=== PATIENT | female | born 1980 | race Caucasian/White ===

== ENCOUNTER 2017-11-23 22:27 | Emergency (ER) | payer OTHER ==
[~2017-11-23 22:27] MED LIST: COZA25TA PO; CYCL10TA PO; HUMA100I2 SQ; LISI-515 PO; NAPR500 PO; SPRI28TA PO; VENTAER INH; ZITHTAB PO
[2017-11-23 22:28] VITALS: BP 110/71; PULSE 114; RESP 18; TEMP 98.6; O2SAT 96
[2017-11-23] MEDS ORDERED: ACETAMINOPHEN/HYDROcodone 325 MG/5 MG TAB PO ONE (22:45)
--- NOTE | 2017-11-23 23:02 | PD ---
HPI Chief Complaint: fall Time Seen by Provider: 22:36 Travel History International Travel<30 days: No Contact w/Intl Traveler<30days: No Traveled to known affect area: No History of Present Illness HPI 37-year-old [id number] white female [employer] employee presents to emergency department for evaluation of a fall. She states that she tripped and fell in her garage onto her hands and knees. She states that this had knocked the wind out of her. Since then she's had severe pain in her elbows, right wrist and to a lesser degree her left wrist. She denies any numbness, tingling or weakness. No injury to her head, neck or back. No injury to her knees. Pain is moderate. Worse with movement. Some relief from remaining still. PFSH Past Medical History Anemia: Yes Asthma: No Anxiety: Yes Diabetes: Yes (TYPE 1) Diminished Hearing: No Glaucoma: No Genitourinary: No Hepatitis: No Hiatal Hernia: No Hypertension: Yes Neurologic: Yes (TIA'S) Respiratory: No Migraines: Yes (COMPLICATED MIGRAINES) Thyroid Disease: No Menopausal: No : 2 Para: 2 Past Surgical History Gynecologic Surgery: Yes (LABIAL FUSION) Insulin Pump: Yes Other Surgery: Yes Social History Alcohol Use: Yes (OCC) Tobacco Use: No Substance Use: No Allergies-Medications (Allergen,Severity, Reaction): Coded Allergies: amoxicillin (Unverified Allergy, Severe, Diarrhea, 07/09/17) clavulanic acid (Unverified Allergy, Severe, Diarrhea, 07/09/17) morphine (Unverified Allergy, Intermediate, Rash, 07/09/17) PT DENIES ALLERGY cefazolin (Unverified Allergy, Mild, Itching, 07/09/17) RECEIVED SEVERAL MEDS - AMONG THEM WAS ANCEF latex (Unverified Allergy, Mild, ITCHY, 07/09/17) vancomycin (Unverified Allergy, Mild, Itching, 07/09/17) REDNESS AND ITCHING AFTER RECEIVING SEVERAL MEDS AMONG WHICH WAS VANCOMYCIN Uncoded Allergies: SHANIA (Allergy, Severe, 06/13/11) Reported Meds & Prescriptions Reported Meds & Active Scripts Active Victoria (Hydrocodone-Acetaminophen) 5 Mg-325 Mg Tab 1 Tab PO Q4H PRN Zithromax Z-Jorge L (Azithromycin) 250 Mg Dspk 250 Mg PO DIRECTED 500 MG (2 tabs) day 1, then 1 tab days 2-5. Ventolin Hfa 18 GM Inh (Albuterol Sulfate) 90 Mcg/Act Aer 2 Puff INH Q4H PRN Flexeril (Cyclobenzaprine HCl) 10 Mg Tab 10 Mg PO Q8HR PRN Naprosyn (Naproxen) 500 Mg Tab 500 Mg PO Q12HR PRN Reported Sprintec 28 (Norgestimate-Ethinyl Estradiol) 0.25-35 mg-Mcg Tab 1 Tab PO DAILY Humalog Cartridge Inj (Insulin Lispro (Human) Inj) 300 Unit/3 Ml Soln 2-10 Units SQ TIDAC PRN Cozaar (Losartan Potassium) 25 Mg Tab 12.5 Mg PO DAILY Lisinopril 20 Mg Tab 20 Mg PO DAILY Review of Systems General / Constitutional: No: Fever Eyes: No: Visual changes HENT: No: Headaches Cardiovascular: No: Chest Pain or Discomfort Respiratory: No: Shortness of Breath Gastrointestinal: No: Abdominal Pain Genitourinary: No: Dysuria Musculoskeletal: Positive: Arthralgias, Limited ROM, Edema, Pain Skin: No Rash Neurologic: No: Weakness Psychiatric: No: Depression Endocrine: No: Polydipsia Hematologic/Lymphatic: No: Easy Bruising Physical Exam Narrative GENERAL: Well-developed, well-nourished in no apparent distress. Nontoxic appearing. HEAD: Normocephalic, atraumatic. EYES: Pupils equal round and reactive. Extraocular motions intact. No scleral icterus. No injection or drainage. ENT: Nose clear. Throat without erythema, tonsillar hypertrophy or exudate. Uvula midline. Airway patent. NECK: Trachea midline. Supple, nontender, moves head freely. No central bony tenderness or spasm. CARDIOVASCULAR: Regular rate and rhythm without murmurs, gallops, or rubs. RESPIRATORY: Clear to auscultation. Breath sounds equal bilaterally. No wheezes , rales, or rhonchi. GASTROINTESTINAL: Abdomen soft, non-tender, nondistended. No hepato-splenomegaly , or palpable masses. No guarding. EXTREMITIES: Examination of the right upper extremity reveals diffuse tenderness in the right elbow with mild swelling. Patient also has tenderness, swelling over the volar thenar eminence with ecchymosis into the palm. There is no pain in the fingers. She has pain in the wrist diffusely but no point tenderness. No pain in the anatomical snuffbox. She has intact gross sensation with good distal pulses. No pain in the shoulder. The left upper extremity reveals diffuse tenderness in the elbow as well. Minimal swelling. Patient also has pain in the volar pad of the left hand. There is no ecchymosis. She also has some mild tenderness into the wrist. No snuffbox tenderness. She has intact median/ulnar/radial nerves. The skin is intact. The lower extremities are unremarkable for trauma. BACK: Nontender without deformity. No flank tenderness. NEUROLOGICAL: Awake, alert and oriented x 3 .Cranial nerves grossly intact. Motor and sensory grossly within normal limits. Normal speech. Data Data Last Documented VS Vital Signs Date Time Temp Pulse Resp B/P (MAP) Pulse Ox O2 Delivery O2 Flow Rate FiO2 11/23/17 22:28 98.6 114 18 110/71 (84) 96 Room Air Orders Orders Acetamin-Hydrocod 325-5 Mg (Victoria 5-325 (11/23/17 22:45) Elbow, Complete (4 Vws) (11/23/17 22:42) Hand, Complete (Ppb1dkf) (11/23/17 22:42) Elbow, Complete (4 Vws) (11/23/17 22:42) Hand, Complete (Hdt1koz) (11/23/17 22:42) Ice/Cold Pack (11/23/17 22:42) Splint Or Brace Apply/Monitor (11/24/17 00:06) Ed Discharge Order (11/24/17 00:06) MDM Medical Decision Making Medical Screen Exam Complete: Yes Emergency Medical Condition: Yes Medical Record Reviewed: Yes Interpretation(s) Last 24 hours Impressions Hand X-Ray 11/23/172241 Signed Impressions: Service Date/Time: Thursday, November 23, 2017 22:51 - CONCLUSION: Intact right hand. Haroon Arana MD Hand X-Ray 11/23/172241 Signed Impressions: Service Date/Time: Thursday, November 23, 2017 22:51 - CONCLUSION: Intact left hand. Haroon Arana MD Elbow X-Ray 11/23/172241 Signed Impressions: Service Date/Time: Thursday, November 23, 2017 22:56 - CONCLUSION: 3 mm depressed radial head fracture. Haroon Arana MD Elbow X-Ray 11/23/17 2242 Signed Impressions: Service Date/Time: Thursday, November 23, 2017 22:52 - CONCLUSION: Normal left elbow x-rays. Haroon Arana MD Differential Diagnosis MDM: High Differential diagnoses: Fracture, sprain, strain, dislocation, contusion, neurovascular injury Narrative Course Patient is given Lortab 5 milligrams by mouth and ice packs. Diagnosis Primary Impression: Fracture of radial head, right, closed Qualified Codes: S52.121A - Displaced fracture of head of right radius, initial encounter for closed fracture Additional Impressions: right hand contusion left elbow contusion left hand contusion Departure Forms: Work Release Special Instructions: No work 3-5 days. Additional Instructions: Rest. Sling. Ice packs for the next few days. Medications as directed. Follow-up with Dr. Heath next few days for recheck. Return to the ER if any problems. Med/Other Pt SpecificInfo: Prescription(s) given Scripts Hydrocodone-Acetaminophen (Victoria) 5 Mg-325 Mg Tab 1 TAB PO Q4H Y for PAIN, #30 TAB 0 Refills Prov: Kiley Kelley 11/24/17 Disposition: 01 DISCHARGE HOME Condition: Stable Froylan Rosario Nov 23, 2017 23:02
--- NOTE | 2017-11-23 23:19 | RADRPT ---
EXAM DATE/TIME: 11/23/2017 22:51 [facility] COMPARISON: No previous studies available for comparison. INDICATIONS : Left hand pain. Patient fell and she caught herself. MEDICAL HISTORY : None. SURGICAL HISTORY : None. ENCOUNTER: Initial ACUITY: 1 day PAIN SCORE: 5/10 LOCATION: Left hand. FINDINGS: Three view examination of the left hand demonstrates no soft tissue swelling, dislocation, or fractur e. The carpal bones appear intact. The interphalangeal and metacarpophalangeal joints are intact. Bony mineralization is normal. CONCLUSION: Intact left hand. Haroon Arana MD on November 23, 2017 at 23:18 Board Certified Radiologist. This report was verified electronically.
--- NOTE | 2017-11-23 23:20 | RADRPT ---
EXAM DATE/TIME: 11/23/2017 22:51 [facility] COMPARISON: No previous studies available for comparison. INDICATIONS : Right hand pain. Patient fell and caught herself. MEDICAL HISTORY : None. SURGICAL HISTORY : None. ENCOUNTER: Initial ACUITY: 1 day PAIN SCORE: 5/10 LOCATION: Right hand. FINDINGS: Three view examination of the right hand demonstrates no soft tissue swelling, dislocation, or fractu re. The carpal bones appear intact. The interphalangeal and metacarpophalangeal joints are intact. Bony mineralization is normal. CONCLUSION: Intact right hand. Haroon Arana MD on November 23, 2017 at 23:18 Board Certified Radiologist. This report was verified electronically.
--- NOTE | 2017-11-23 23:20 | RADRPT ---
EXAM DATE/TIME: 11/23/2017 22:52 [facility] COMPARISON: No previous studies available for comparison. INDICATIONS : Left elbow pain. Patient fell and caught herself. MEDICAL HISTORY : None. SURGICAL HISTORY : None. ENCOUNTER: Initial ACUITY: 1 day PAIN SCORE: 5/10 LOCATION: Left elbow. FINDINGS: Multiple view examination of the left elbow demonstrates no soft tissue swelling, joint effusion, or fracture. The osseous structures are in normal alignment. Bony mineralization is normal. CONCLUSION: Normal left elbow x-rays. Haroon Arana MD on November 23, 2017 at 23:19 Board Certified Radiologist. This report was verified electronically.
--- NOTE | 2017-11-23 23:22 | RADRPT ---
EXAM DATE/TIME: 11/23/2017 22:56 [facility] COMPARISON: No previous studies available for comparison. INDICATIONS : Right elbow pain. Patient fell and caught herself. MEDICAL HISTORY : None. SURGICAL HISTORY : None. ENCOUNTER: Initial ACUITY: 1 day PAIN SCORE: 10/10 LOCATION: Right elbow. FINDINGS: There is a radial head fracture of the right elbow with approximately 3 mm of depression. The fractur e involves the lateral third of the articular surface. Other bones of the right elbow are intact. A l ipohemarthrosis is present. CONCLUSION: 3 mm depressed radial head fracture. Haroon Arana MD on November 23, 2017 at 23:19 Board Certified Radiologist. This report was verified electronically.
[2017-11-24] MEDS ORDERED: NORC5TAB PO (00:08)
== END 2017-11-24 00:30 | disposition home or self-care (01) ==
LOC: NEPK 22:27
DX: S52.121A Displaced fracture of head of right radius, initial encounter for closed fracture (principal); S60.221A Contusion of right hand, initial encounter; S60.222A Contusion of left hand, initial encounter; S50.02XA Contusion of left elbow, initial encounter; I10 Essential (primary) hypertension; E10.9 Type 1 diabetes mellitus without complications; W01.0XXA Fall on same level from slipping, tripping and stumbling without subsequent striking against object, initial encounter; Y92.008 Other place in unspecified non-institutional (private) residence as the place of occurrence of the external cause; Z79.4 Long term (current) use of insulin
CPT/HCPCS: 29105; 73080; 73130

== ENCOUNTER 2018-03-28 07:01 | Emergency (ER) | payer OTHER ==
[~2018-03-28 07:01] MED LIST changes: +NORC5TAB PO
[2018-03-28 07:17] VITALS: BP 157/81; PULSE 81; RESP 18; TEMP 98; O2SAT 100
[2018-03-28] MEDS ORDERED: ADDE20 PO (07:17)
[2018-03-28] MEDS ORDERED: ZOFR4TAB PO (07:29)
[2018-03-28] MEDS ORDERED: TYLETAB34 PO (07:29)
[2018-03-28] MEDS ORDERED: CAPZ0.1C TOPICAL (07:29)
--- NOTE | 2018-03-28 07:45 | PD ---
HPI Chief Complaint: Injury Time Seen by Provider: 07:27 Travel History International Travel<30 days: No Contact w/Intl Traveler<30days: No Traveled to known affect area: No History of Present Illness HPI This is a 38-year-old female who presents for evaluation of left knee and left heel pain. She reports that 1.5 weeks ago she ran on the treadmill for the first time in 3 months. She developed a sharp medial left knee pain. She was seen at an outside urgent care center where she had an x-ray of the left knee which was reportedly normal. She was referred for orthopedic follow-up and she has an appointment with orthopedic physician Dr. Bull on April 03. This evening the patient was at work which required her to walk for long periods of time in her left leg. She developed increasing pain in the left knee as well as pain in the left heel and this is what prompted evaluation. The pain is a sharp pain which is constant and worse with walking. She has been applying icy hot, using tramadol which was prescribed her at the urgent care center. She reports that tramadol has caused nausea, vomiting, itching. She reports history of diabetes with resultant chronic kidney disease and she is thus limited to only low-dose ibuprofen. She reports that she has a walker and a cane at home to help with ambulation. No other complaints at this time. PFSH Past Medical History Anemia: Yes Asthma: No Anxiety: Yes Diabetes: Yes (TYPE 1) Diminished Hearing: No Glaucoma: No Genitourinary: No Hepatitis: No Hiatal Hernia: No Hypertension: Yes Neurologic: Yes (TIA'S) Respiratory: No Migraines: Yes (COMPLICATED MIGRAINES) Thyroid Disease: No ?: Not Menopausal: No : 2 Para: 2 Past Surgical History Gynecologic Surgery: Yes (LABIAL FUSION) Insulin Pump: Yes Other Surgery: Yes Social History Alcohol Use: Yes (OCC) Tobacco Use: No Substance Use: No Allergies-Medications (Allergen,Severity, Reaction): Coded Allergies: amoxicillin (Unverified Allergy, Severe, Diarrhea, 03/28/18) clavulanic acid (Unverified Allergy, Severe, Diarrhea, 03/28/18) morphine (Unverified Allergy, Intermediate, Rash, 03/28/18) PT DENIES ALLERGY cefazolin (Unverified Allergy, Mild, Itching, 03/28/18) RECEIVED SEVERAL MEDS - AMONG THEM WAS ANCEF latex (Unverified Allergy, Mild, ITCHY, 03/28/18) vancomycin (Unverified Allergy, Mild, Itching, 03/28/18) REDNESS AND ITCHING AFTER RECEIVING SEVERAL MEDS AMONG WHICH WAS VANCOMYCIN Uncoded Allergies: SHANIA (Allergy, Severe, 06/13/11) Reported Meds & Prescriptions Reported Meds & Active Scripts Active Capzasin-Hp Topical (Capsaicin) 0.1% Cream 1 Applic TOPICAL TID 10 Days Zofran (Ondansetron HCl) 4 Mg Tab 4 Mg PO Q6HR PRN Tylenol-Codeine #3 (Acetaminophen-Codeine) 300-30 mg Tab 1 Tab PO Q6H PRN Reported Adderall (Amphetamine-Dextroamphetamine) 20 Mg Tab 20 Mg PO DAILY Avoid late evening doses. Space doses at least 4 to 6 hours if more than once/day dosing. Sprintec 28 (Norgestimate-Ethinyl Estradiol) 0.25-35 mg-Mcg Tab 1 Tab PO DAILY Humalog Cartridge Inj (Insulin Lispro (Human) Inj) 300 Unit/3 Ml Soln 2-10 Units SQ TIDAC PRN Cozaar (Losartan Potassium) 25 Mg Tab 12.5 Mg PO DAILY Lisinopril 20 Mg Tab 20 Mg PO DAILY Review of Systems Except as stated in HPI: all other systems reviewed are Neg Physical Exam Narrative GENERAL: Well-developed well-nourished female no acute distress SKIN: Warm and dry. CARDIOVASCULAR: Regular rate and rhythm. No murmur appreciated. RESPIRATORY: No accessory muscle use. Clear to auscultation. Breath sounds equal bilaterally. MUSCULOSKELETAL: Thomas wrap was on the left knee which was removed. There is slight tenderness to palpation to the medial left knee. There is tenderness to palpation to the plantar aspect of the left heel. There is pain with dorsiflexion of the left ankle. The Achilles tendon is intact. 2+ dorsalis pedis and posterior tibial pulses. There is no evidence of left knee joint effusion. Full range of motion. There is no obvious laxity on valgus/varus/ anterior/posterior stress. NEUROLOGICAL: Awake and alert. No obvious cranial nerve deficits. Motor grossly within normal limits. Normal speech. Data Data Last Documented VS Vital Signs Date Time Temp Pulse Resp B/P (MAP) Pulse Ox O2 Delivery O2 Flow Rate FiO2 03/28/18 07:21 81 18 100 Room Air 03/28/18 07:17 98.0 157/81 (106) Orders Orders Ed Discharge Order (03/28/18 07:51) [facility] Medical Decision Making Medical Screen Exam Complete: Yes Emergency Medical Condition: Yes Medical Record Reviewed: Yes Differential Diagnosis Medial knee sprain versus ligamentous disruption versus meniscal disruption versus tibial plateau fracture versus plantar fasciitis versus calcaneal bursitis Narrative Course The patient will be given a prescription for Tylenol with Codeine which she has tolerated in the past with no adverse effects. In case of resultant nausea she will be given a prescription for Zofran. She will be given a prescription for capsaicin. She will be given an outpatient order sheet for MRI of the left knee so that ideally this could be obtained prior to her orthopedic appointment on April 03. She is encouraged to ice the affected area several times a day. Diagnosis Primary Impression: Knee internal derangement Additional Impression: Pain of left heel Referrals: Orthopedist Departure Forms: Tests/Procedures, Work Release Enter return to work date: March 31, 2018 Additional Instructions: Medication as needed. Do not drive or drink alcohol and taking Tylenol with codeine. Ice the affected area several times a day 15 minutes at a time. Use crutches or walker as needed. Follow-up with orthopedist as scheduled. Return for any emergent medical conditions. Med/Other Pt SpecificInfo: Prescription(s) given, Orthopedic Instructions Scripts Capsaicin Topical (Capzasin-Hp Topical) 0.1% Cream 1 APPLIC TOPICAL TID for Pain Management for 10 Days, #1 TUBE 0 Refills Prov: Kiley Kelley DO 03/28/18 Ondansetron (Zofran) 4 Mg Tab 4 MG PO Q6HR Y for NAUSEA OR VOMITING, #20 TAB 0 Refills Prov: Kiley Kelley DO 03/28/18 Acetaminophen-Codeine (Tylenol-Codeine #3) 300-30 mg Tab 1 TAB PO Q6H Y for PAIN, #20 TAB 0 Refills Prov: Kiley Kelley DO 03/28/18 Disposition: 01 DISCHARGE HOME Condition: Stable Chip Lucero March 28, 2018 07:45
== END 2018-03-28 08:04 | disposition home or self-care (01) ==
LOC: NEPD 07:01
DX: M23.92 Unspecified internal derangement of left knee (principal); M79.672 Pain in left foot; E10.22 Type 1 diabetes mellitus with diabetic chronic kidney disease; I12.9 Hypertensive chronic kidney disease with stage 1 through stage 4 chronic kidney disease, or unspecified chronic kidney disease; N18.9 Chronic kidney disease, unspecified; D63.1 Anemia in chronic kidney disease; Z86.73 Personal history of transient ischemic attack (TIA), and cerebral infarction without residual deficits; Z97.4 Presence of external hearing-aid; Z79.899 Other long term (current) drug therapy
CPT/HCPCS: 99283; E0113